=== PATIENT | male | born 1965 | race Two or more races ===

== ENCOUNTER 2018-06-03 19:11 | Emergency (ER) | payer MEDICARE | END 2018-06-03 21:36 | disposition home or self-care (01) | LOC: M ED 19:11 | DX: R09.89 Other specified symptoms and signs involving the circulatory and respiratory systems (principal); F70 Mild intellectual disabilities | CPT/HCPCS: 71250 ==

== ENCOUNTER → 2021-05-26 | Outpatient (REF) | payer MEDICARE ==
[2021-05-27 11:26] LABS: BASO # 0.1 10^3/uL (0.0-0.2); BASO % 0.9 % (0.0-1.0); EOS # 0.2 10^3/uL (0.0-0.5); EOS % 2.9 % (0.0-3.0); HEMATOCRIT 48.8 % (42.0-52.0); HEMOGLOBIN 16.3 g/dl (13.5-17.5); LYMPH # 1.4 10^3/uL (1.5-5.0); LYMPH % 20.3 % (24.0-44.0); MEAN CORPUSCULAR HEMOGLOBIN 30.4 pg (27.0-33.0); MEAN CORPUSCULAR HGB CONC 33.4 g/dl (32.0-36.5); MEAN CORPUSCULAR VOLUME 90.9 fl (80.0-96.0); MONO # 0.6 10^3/uL (0.0-0.8); MONO % 8.5 % (2.0-8.0); NEUTROPHILS # 4.6 10^3/uL (1.5-8.5); NEUTROPHILS % 66.7 % (36.0-66.0); PLATELET COUNT, AUTOMATED 266 10^3/uL (150-450); RED BLOOD COUNT 5.37 10^6/uL (4.30-6.10); WHITE BLOOD COUNT 6.9 10^3/uL (4.0-10.0)
[2021-05-27 11:52] LABS: HEMOGLOBIN A1c 5.3 %
[2021-05-27 11:59] LABS: ALBUMIN 4.2 GM/DL (3.2-5.2); ALT/SGPT 28 U/L (12-78); BLOOD UREA NITROGEN 12 MG/DL (7-18); CALCIUM LEVEL 9.3 MG/DL (8.5-10.1); CARBON DIOXIDE LEVEL 29 MEQ/L (21-32); CHLORIDE LEVEL 105 MEQ/L (98-107); CHOLESTEROL LEVEL 220 MG/DL (<200); CHOLESTEROL RISK RATIO 4.782 (<5); CREATININE FOR GFR 1.05 MG/DL (0.70-1.30); GLOMERULAR FILTRATION RATE > 60.0 (>56); GLUCOSE, FASTING 73 MG/DL (70-100); HDL CHOLESTEROL 46 MG/DL (>40); LDL CHOLESTEROL 140 MG/DL (<100); NON-HDL-C 174 MG/DL; POTASSIUM SERUM 5.3 MEQ/L (3.5-5.1); SODIUM LEVEL 140 MEQ/L (136-145); TOTAL PROTEIN 7.3 GM/DL (6.4-8.2); TRIGLYCERIDES LEVEL 171 MG/DL (<150)
== END ==
LOC: M SFHCCLAY 14:40
PROVIDERS: ATTEND Family Medicine
DX: F84.0 Autistic disorder (principal); F41.9 Anxiety disorder, unspecified; Z13.1 Encounter for screening for diabetes mellitus; Z13.220 Encounter for screening for lipoid disorders; Z23 Encounter for immunization
CPT/HCPCS: 80053; 80061; 83036; 85025; 90682; G0008; G0463

== ENCOUNTER 2023-05-28 14:43 | Emergency (ER) | payer MEDICARE ==
[~2023-05-28] VITALS: Ht 182.9 cm; Wt 91.5 kg
[2023-05-28] MEDS ORDERED: KETOROLAC 60MG 2ML VIAL IM ONE (16:15)
[2023-05-28] MEDS ORDERED: methocarbamoL 500 MG TAB PO ONE (16:15)
[2023-05-28] MEDS ORDERED: METH-1164 PO (17:15)
[2023-05-28] MEDS ORDERED: IBUP-1022 PO (17:15)
[2023-05-28 17:21] VITALS: BP 132/95; TEMP 97.9; O2SAT 96
== END 2023-05-28 17:28 | disposition home or self-care (01) ==
LOC: M ED 14:43
DX: M54.50 Low back pain, unspecified (principal); X50.0XXA Overexertion from strenuous movement or load, initial encounter; Y92.009 Unspecified place in unspecified non-institutional (private) residence as the place of occurrence of the external cause; M51.36 Other intervertebral disc degeneration, lumbar region
CPT/HCPCS: 72131; 96372; 99283; J1885

== ENCOUNTER → 2024-07-10 | Outpatient (REF) | payer MEDICARE ==
[~2024-07-10] MED LIST: IBUP-1022 PO; METH-1164 PO
[2024-07-10 12:19] LABS: PSA SCREENING 14.38 NG/ML (< 4.00)
[2024-07-10 12:22] LABS: ALBUMIN 4.4 G/DL (3.2-5.2); ALKALINE PHOSPHATASE 82 U/L (40-129); ALT/SGPT 18 U/L (7.0-40); AST/SGOT 14 U/L (<34); BILIRUBIN,TOTAL 1.5 MG/DL (0.3-1.2); BLOOD UREA NITROGEN 11 MG/DL (9-23); CARBON DIOXIDE LEVEL 29 MMOL/L (20-31); CHLORIDE LEVEL 106 MMOL/L (98-107); CHOLESTEROL LEVEL 247 MG/DL (<200); CHOLESTEROL RISK RATIO 5.02 (<5); CREATININE FOR GFR 0.99 MG/DL (0.70-1.30); GLOMERULAR FILTRATION RATE > 60.0 (>49); GLUCOSE, FASTING 98 MG/DL (74-106); HDL CHOLESTEROL 49.2 MG/DL (>40); NON-HDL-C 197.8 MG/DL; POTASSIUM SERUM 4.8 MMOL/L (3.5-5.1); SODIUM LEVEL 144 MMOL/L (136-145); TOTAL PROTEIN 7.6 G/DL (5.7-8.2); TRIGLYCERIDES LEVEL 169 MG/DL (<150)
== END ==
LOC: M SFHCCLAY 09:01
PROVIDERS: ATTEND Family Medicine
DX: E78.2 Mixed hyperlipidemia (principal); Z12.5 Encounter for screening for malignant neoplasm of prostate
CPT/HCPCS: 80053; 80061; G0103

== ENCOUNTER → 2024-07-26 | Outpatient (REF) | payer MEDICARE ==
[2024-07-31 07:18] LABS: PSA FREE 2.3 ng/mL; PSA TOTAL 22.4 ng/mL (< OR = 4.0)
== END ==
LOC: M LABWUC 16:24
PROVIDERS: ATTEND Physician Assistant
DX: R97.20 Elevated prostate specific antigen [PSA] (principal)

== ENCOUNTER → 2024-08-17 | Outpatient (REF) | payer MEDICARE | LOC: M SMT 09:26 | PROVIDERS: ATTEND Urology | DX: C61 Malignant neoplasm of prostate (principal); R97.20 Elevated prostate specific antigen [PSA]; Z79.899 Other long term (current) drug therapy; Z82.49 Family history of ischemic heart disease and other diseases of the circulatory system; Z82.0 Family history of epilepsy and other diseases of the nervous system ==

== ENCOUNTER → 2024-11-16 | Outpatient (CLI) | payer MEDICARE | LOC: M WUC 10:09 | PROVIDERS: ATTEND Urology | DX: C61 Malignant neoplasm of prostate (principal) ==

== ENCOUNTER → 2025-02-07 | Outpatient (RCR) | payer MEDICARE ==
[~2025-02-07] MED LIST changes: +APAL240T PO; +LEXA5TAB13; +ONETAB32 PO
== END ==
LOC: M ONCR 01-08 10:32
PROVIDERS: ATTEND General Practice
DX: Z51.0 Encounter for antineoplastic radiation therapy (principal); C61 Malignant neoplasm of prostate

== ENCOUNTER → 2025-05-09 | Outpatient (CLI) | payer MEDICARE ==
[~2025-05-09] MED LIST changes: -IBUP-1022 PO; +IBUP600T42 PO
== END ==
LOC: M ONCR 13:41
PROVIDERS: ATTEND General Practice
DX: C61 Malignant neoplasm of prostate (principal); Z79.811 Long term (current) use of aromatase inhibitors; Z79.899 Other long term (current) drug therapy; Z92.3 Personal history of irradiation